=== PATIENT | male | born 1980 | race African-American/Black ===

== ENCOUNTER 2016-11-14 11:45 | Inpatient (IN) | payer OTHER ==
[2016-11-14 13:15] VITALS: BMI 20.7
--- NOTE | 2016-11-14 14:04 | HP ---
CIWA Score - CIWA Score Nausea/Vomitin-Mild Nausea/No Vomiting Muscle Tremors: 4-Moderate,w/Arms Extend Anxiety: 4-Mod. Anxious/Guarded Agitation: 1-Slight > Activity Paroxysmal Sweats: 1-Minimal Palms Moist Orientation: 0-Oriented Tacttile Disturbances: 1-Very Mild Itch/Numbness Auditory Disturbances: 1-Very Mild Visual Disturbances: 1-Very Mild Sensitivity Headache: 1-Very Mild CIWA-Ar Total Score: 15 Admission ROS BHS - HPI Chief Complaint: My brother suggested I be here, I'm drinking too much Allergies/Adverse Reactions: Allergies Allergy/AdvReac Type Severity Reaction Status Date / Time shrimp Allergy Intermediate Swelling Verified 11/14/16 13:58 History of Present Illness: 36 yo gentleman here for detox from alcohol - first time in detox. No seizures but does have black outs. Exam Limitations: Clinical Condition - Ebola screening Have you traveled outside of the country in the last 21 days: No Have you had contact with anyone from an Ebola affected area: No Have you been sick,other than usual withdrawal symptoms: No Do you have a fever: No - Review of Systems Constitutional: Loss of Appetite, Night Sweats, Changes in sleep, Weakness EENT: reports: Blurred Vision Respiratory: reports: No Symptoms reported Cardiac: reports: No Symptoms Reported GI: reports: Nausea, Poor Appetite, Indigestion : reports: Frequency Integumentary: reports: Dryness Neuro: reports: Headache Endocrine: reports: No Symptoms Reported Hematology: reports: No Symptoms Reported Psychiatric: reports: Mood/Affect Appropiate, Orientated x3, Agitated, Anxious Other Systems: Reviewed and Negative Patient History - Patient Medical History Hx Anemia: No Hx Asthma: No Hx Chronic Obstructive Pulmonary Disease (COPD): No Hx Cancer: No Hx Cardiac Disorders: No Hx Congestive Heart Failure: No Hx Hypertension: No Hx Hypercholesterolemia: No Hx Pacemaker: No HX Cerebrovascular Accident: No Hx Seizures: No Hx Dementia: No Hx Diabetes: No Hx Gastrointestinal Disorders: No Hx Liver Disease: No Hx Genitourinary Disorders: No Hx Sexually Transmitted Disorders: Yes (treated with PCN injections) Hx Renal Disease (ESRD): No Hx Thyroid Disease: No Hx Human Immunodeficiency Virus (HIV): No Hx Hepatitis C: No Hx Depression: No Hx Suicide Attempt: No Hx Bipolar Disorder: No Hx Schizophrenia: No - Patient Surgical History Past Surgical History: No - PPD History Previous Implant?: No PPD to be Administered?: Yes - Reproductive History Patient is a Female of Child Bearing Age (11 -55 yrs old): No (male) - Smoking Cessation Smoking history: Current every day smoker Have you smoked in the past 12 months: Yes Aproximately how many cigarettes per day: 8 Initiated information on smoking cessation: Yes 'Breaking Loose' booklet given: 11/14/16 (give on floor) - Substance & Tx. History Hx Alcohol Use: Yes Hx Substance Use: Yes Substance Use Type: Alcohol, Marijuana Hx Substance Use Treatment: Yes - Substances Abused Alcohol Route: Oral Frequency: Daily Amount used: three 40oz beers; 1 pint bourbon Age of first use: 17 Date of Last Use: 11/14/16 Marijuana/Hashish Route: Smoking Frequency: 3-6 times per week Amount used: 1 joint Age of first use: 17 Date of Last Use: 11/14/16 Family Disease History - Family Disease History Family Disease History: Heart Disease: Mother (alive, ), [place]: Father (, etoh), Other: Father, Mother, Brother (1 brother uses heroin), Sister (arthritis ) Admission Physical Exam S - Vital Signs Vital Signs: Vital Signs - 24 hr 11/14/16 13:12 Temperature 96.3 F L Pulse Rate 91 H Respiratory 18 Rate Blood Pressure 140/77 - Physical General Appearance: Yes: Nourished, Appropriately Dressed, Mild Distress, Anxious HEENTM: Yes: Hearing grossly Normal, Normocephalic, Normal Voice, Pharynx Normal Respiratory: Yes: Normal Breath Sounds, No Respiratory Distress Neck: Yes: No masses,lesions,Nodules, Supple Breast: Yes: Breast Exam Deferred Cardiology: Yes: Regular Rhythm, Regular Rate Abdominal: Yes: Soft Genitourinary: Yes: Within Normal Limits Back: Yes: Normal Inspection Musculoskeletal: Yes: full range of Motion, Gait Steady Extremities: Yes: Normal Inspection, Normal Range of Motion, Non-Tender Neurological: Yes: Fully Oriented, Alert, Normal Mood/Affect, Normal Response Integumentary: Yes: Normal Color, Warm Lymphatic: Yes: Within Normal Limits - Diagnostic (1) Alcohol dependence with uncomplicated withdrawal Current Visit: Yes Status: Chronic (2) Cannabis dependence Current Visit: Yes Status: Chronic (3) Nicotine dependence Current Visit: Yes Status: Chronic Qualifiers: Nicotine product type: cigarettes Substance use status: uncomplicated Qualified Code(s): F17.210 - Nicotine dependence, cigarettes, uncomplicated (4) Syphilis contact, treated Current Visit: Yes Status: Chronic Comment: hx PCN injections years ago Cleared for Admission [facility] - Detox or Rehab [facility] Level of Care: Medically Managed Detox Regimen/Protocol: Librium BHS Breath Alcohol Content Breath Alcohol Content: 0.148 Urine Drug Screen - Results Drug Screen Negative: No Urine Drug Screen Results: THC-Marijuana
[2016-11-14] MEDS ORDERED: MAG HYDROX/AL HYDROX/SIMETH 30 ML UNIT-DOSE CUP PO PRN (14:08)
[2016-11-14] MEDS ORDERED: chlordiazePOXIDE HCL 25 MG CAPSULE PO ONE (14:08)
[2016-11-14] MEDS ORDERED: MAGNESIUM HYDROX 2400MG/30ML ORAL SUSPENSION 30 ML CUP PO PRN (14:08)
[2016-11-14] MEDS ORDERED: MAGNESIUM CITRATE 300 ML BOTTLE PO PRN (14:08)
[2016-11-14] MEDS ORDERED: IBUPROFEN 400 MG TABLET (FP) PO PRN (14:08)
[2016-11-14] MEDS ORDERED: chlordiazePOXIDE HCL 25 MG CAPSULE PO PRN (14:08)
[2016-11-14] MEDS ORDERED: guaiFENesin/D-METHORPHAN HB 10 ML UNIT-DOSE CUPS PO PRN (14:08)
[2016-11-14] MEDS ORDERED: P-EPHED 60MG/TRIPROLIDI 2.5MG TABLET PO PRN (14:08)
[2016-11-14] MEDS ORDERED: ACETAMINOPHEN 325 MG TABLET (FP) PO PRN (14:08)
[2016-11-14] MEDS ORDERED: LOPERAMIDE HCL 2 MG CAPSULE PO PRN (14:08)
[2016-11-14] MEDS: NICOTINE 14 MG/24 HOURS TOPICAL PATCH TD SCH (15:58)
[2016-11-14] MEDS: chlordiazePOXIDE HCL 25 MG CAPSULE PO SCH ×2 (18:34→22:02)
[2016-11-14] MEDS: diphenhydrAMINE HCL 50 MG CAPSULE PO PRN (22:01)
[2016-11-14] MEDS: THIAMINE HCL 100 MG TABLET (FP) PO SCH (22:01)
[2016-11-15] MEDS: chlordiazePOXIDE HCL 25 MG CAPSULE PO SCH ×4 (05:57→22:01)
[2016-11-15 09:54] LABS: ALBUMIN 3.9 g/dl (3.4-5.0); ALK PHOS 78 U/L (45-117); ANION GAP 9 (8-16); BILIRUBIN,TOTAL 0.8 mg/dL (0.2-1.0); CALCIUM 8.9 mg/dL (8.5-10.1); CO2 29 mmol/L (21-32); COCKROFT - GAULT 112.45; CREATININE 0.8 mg/dL (0.7-1.3); GLUCOSE,RANDOM 80 mg/dL (74-106); SGOT/AST 79 U/L (15-37); SGPT/ALT 36 U/L (12-78); TOT PROT 7.5 g/dl (6.4-8.2)
[2016-11-15 10:01] LABS: MCH 31.5 pg (25.7-33.7); MCHC 33.3 g/dl (32.0-35.9); MEAN CELL VOLUME 94.7 fl (80-96); MEAN PLT VOLUME 7.1 fl (7.5-11.1); PLATELET COUNT 275 K/MM3 (134-434); RDW 13.6 % (11.9-15.9); WHITE BLOOD COUNT 4.4 K/mm3 (4.0-10.0)
[2016-11-15] MEDS: PRENATAL VITAMINS W/ FOLIC ACID TABLET (FP) PO SCH (10:06)
[2016-11-15] MEDS: NICOTINE 14 MG/24 HOURS TOPICAL PATCH TD SCH (10:06)
[2016-11-15 10:20] LABS: URINE APPEARANCE CLEAR; URINE BILIRUBIN NEGATIVE (NEGATIVE); URINE BLOOD NEGATIVE (NEGATIVE); URINE COLOR COLORLESS; URINE GLUCOSE (UA) NEGATIVE (NEGATIVE); URINE KETONE NEGATIVE (NEGATIVE); URINE LEUK ESTERASE NEGATIVE (NEGATIVE); URINE NITRITE NEGATIVE (NEGATIVE); URINE PROTEIN NEGATIVE (NEGATIVE); URINE UROBILINOGEN NEGATIVE E.U./dl (0.2-1.0)
--- NOTE | 2016-11-15 11:02 | PN ---
S CIWA - CIWA Score Nausea/Vomitin-No Nausea/No Vomiting Muscle Tremors: 3 Anxiety: 4-Mod. Anxious/Guarded Agitation: 4-Moderately Restless Paroxysmal Sweats: 3 Orientation: 0-Oriented Tacttile Disturbances: 0-None Auditory Disturbances: 0-None Visual Disturbances: 0-None Headache: 0-None Present CIWA-Ar Total Score: 14 BHS Progress Note (SOAP) Subjective: Anxiety,tremors,sweating,interrupted sleep,restless. Objective: 11/15/16 11:01 Vital Signs - 8 hr 11/15/16 11/15/16 11/15/16 03:43 06:00 09:33 Temperature 97.2 F L 97.2 F L Pulse Rate 61 85 Respiratory 18 18 18 Rate Blood Pressure 130/88 140/99 Laboratory Results - last 24 hr 11/14/16 11/15/16 11/15/16 08:40 08:00 08:00 WBC 4.4 RBC 4.31 Hgb 13.6 Hct 40.8 MCV 94.7 MCHC 33.3 RDW 13.6 Plt Count 275 MPV 7.1 L Sodium 137 Potassium 3.9 Chloride 99 Carbon Dioxide 29 Anion Gap 9 BUN 10 Creatinine 0.8 Creat Clearance w eGFR > 60 Random Glucose 80 Calcium 8.9 Total Bilirubin 0.8 AST 79 H ALT 36 Alkaline Phosphatase 78 Total Protein 7.5 Albumin 3.9 Urine Color Colorless Urine Appearance Clear Urine pH 6.0 Urine Protein Negative Urine Glucose (UA) Negative Urine Ketones Negative Urine Blood Negative Urine Nitrite Negative Urine Bilirubin Negative Urine Urobilinogen Negative Ur Leukocyte Esterase Negative labs noted Assessment: 11/15/16 11:02 Withdrawal sx. Plan: Continue detox
[2016-11-15] MEDS: hydrOXYzine PAMOATE 50 MG CAPSULE (FP) PO PRN (17:29)
[2016-11-15] MEDS: THIAMINE HCL 100 MG TABLET (FP) PO SCH (22:01)
[2016-11-15] MEDS: diphenhydrAMINE HCL 50 MG CAPSULE PO PRN (22:02)
[2016-11-16] MEDS: chlordiazePOXIDE HCL 25 MG CAPSULE PO SCH ×2 (04:52→10:05)
--- NOTE | 2016-11-16 08:56 | CONSULT ---
[facility] Psychiatric Consult - Data Date of interview: 11/16/16 Admission source: [facility] Identifying data: This is 36 years old male with no psychiatric hospitalization history intoxicated with: Alcohol, Cannabis, Nicotine Substance Abuse History: - Smoking Cessation. Smoking history: Current every day smoker. Have you smoked in the past 12 months: Yes. Aproximately how many cigarettes per day: 8. Initiated information on smoking cessation: Yes. ' Breaking Loose' booklet given: 11/14/16 (give on floor). - Substance & Tx. History. Hx Alcohol Use: Yes. Hx Substance Use: Yes. Substance Use Type: Alcohol, Marijuana. Hx Substance Use Treatment: Yes. - Substances Abused. Alcohol. Route: Oral. Frequency: Daily. Amount used: three 40oz beers; 1 pint bourbon. Age of first use: 17. Date of Last Use: 11/14/16. Marijuana/ Hashish. Route: Smoking. Frequency: 3-6 times per week. Amount used: 1 joint. Age of first use: 17. Date of Last Use: 11/14/16 Medical History: Hisotry of Syphilis contact Psychiatric History: Patient reports history of Bipolar disorder, reports no history of psychiatric hospitalizationsd, reports no medications taking prior to admission Physical/Sexual Abuse/Trauma History: Denies Additional Comment: Observation. Detox Unit Care Protocol Mental Status Exam - Mental Status Exam Alert and Oriented to: Person Cognitive Function: Fair Patient Appearance: Unkempt Mood: Sad Affect: Flat Patient Behavior: Sedated Speech Pattern: Delayed Voice Loudness: Mildly Soft/Quiet Thought Process: Circumstantial Thought Disorder: Being Controlled Hallucinations: Denies Suicidal Ideation: Denies Homicidal Ideation: Denies Insight/Judgement: Fair Sleep: Difficulty falling asleep Appetite: Fair Muscle strength/Tone: Mild Hypotonicity Gait/Station: Shuffling Additional Comments: Observation. Detox Unit Care Protocol Psychiatric Findings - Problem List ([place] 1, 2,3) (1) Alcohol dependence with uncomplicated withdrawal Current Visit: Yes Status: Chronic (2) Cannabis dependence Current Visit: Yes Status: Chronic (3) Nicotine dependence Current Visit: Yes Status: Chronic Qualifiers: Nicotine product type: cigarettes Substance use status: uncomplicated Qualified Code(s): F17.210 - Nicotine dependence, cigarettes, uncomplicated (4) Syphilis contact, treated Current Visit: Yes Status: Chronic Comment: hx PCN injections years ago (5) Bipolar disorder Current Visit: Yes Status: Suspected - Initial Treatment Plan Initial Treatment Plan: Observation. Detox Unit Care Protocol
--- NOTE | 2016-11-16 09:10 | EKG ---
Test Reason : Blood Pressure : / mmHG Vent. Rate : 087 BPM Atrial Rate : 087 BPM P-R Int : 136 ms QRS Dur : 094 ms QT Int : 362 ms P-R-T Axes : 047 061 035 degrees QTc Int : 435 ms NORMAL SINUS RHYTHM NORMAL ECG NO PREVIOUS ECGS AVAILABLE Confirmed by MIGUEL BRYANT MD ([id number]) on 11/16/2016 9:10:37 AM Referred By: Confirmed By:MIGUEL BRYANT MD
[2016-11-16] MEDS: PRENATAL VITAMINS W/ FOLIC ACID TABLET (FP) PO SCH (10:05)
[2016-11-16] MEDS: NICOTINE 14 MG/24 HOURS TOPICAL PATCH TD SCH (10:06)
[2016-11-16] MEDS: NICOTINE POLACRILEX 2 MG GUM BUC PRN (10:08)
--- NOTE | 2016-11-16 11:09 | PN ---
S CIWA - CIWA Score Nausea/Vomitin Muscle Tremors: 2 Anxiety: 2 Agitation: 2 Paroxysmal Sweats: 3 Orientation: 0-Oriented Tacttile Disturbances: 1-Very Mild Itch/Numbness Auditory Disturbances: 0-None Visual Disturbances: 0-None Headache: 0-None Present CIWA-Ar Total Score: 12 S Progress Note (SOAP) Subjective: interupted sleep, sweats Objective: 11/16/16 11:07 Vital Signs Temperature 96.3 F L 11/16/16 09:51 Pulse Rate 76 11/16/16 09:51 Respiratory Rate 16 11/16/16 09:51 Blood Pressure 125/84 11/16/16 09:51 O2 Sat by Pulse Oximetry (%) Laboratory Tests 11/14/16 11/15/16 11/15/16 08:40 08:00 08:00 WBC 4.4 RBC 4.31 Hgb 13.6 Hct 40.8 MCV 94.7 MCHC 33.3 RDW 13.6 Plt Count 275 MPV 7.1 L Sodium 137 Potassium 3.9 Chloride 99 Carbon Dioxide 29 Anion Gap 9 BUN 10 Creatinine 0.8 Creat Clearance w eGFR > 60 Random Glucose 80 Calcium 8.9 Total Bilirubin 0.8 AST 79 H ALT 36 Alkaline Phosphatase 78 Total Protein 7.5 Albumin 3.9 Urine Color Colorless Urine Appearance Clear Urine pH 6.0 Ur Specific [place] <= 1.005 Urine Protein Negative Urine Glucose (UA) Negative Urine Ketones Negative Urine Blood Negative Urine Nitrite Negative Urine Bilirubin Negative Urine Urobilinogen Negative Ur Leukocyte Esterase Negative RPR Titer 11/15/16 08:00 WBC RBC Hgb Hct MCV MCHC RDW Plt Count MPV Sodium Potassium Chloride Carbon Dioxide Anion Gap BUN Creatinine Creat Clearance w eGFR Random Glucose Calcium Total Bilirubin AST ALT Alkaline Phosphatase Total Protein Albumin Urine Color Urine Appearance Urine pH Ur Specific [place] Urine Protein Urine Glucose (UA) Urine Ketones Urine Blood Urine Nitrite Urine Bilirubin Urine Urobilinogen Ur Leukocyte Esterase RPR Titer Nonreactive pt aox3 in nad ambulating Assessment: 11/16/16 11:08 11/16/16 11:08 withdrawal sx;s Plan: cont. detox increase fluids
[2016-11-16] MEDS: chlordiazePOXIDE 5 MG CAPSULE PO SCH ×2 (17:25→22:19)
[2016-11-16] MEDS: diphenhydrAMINE HCL 50 MG CAPSULE PO PRN (22:19)
[2016-11-16] MEDS: THIAMINE HCL 100 MG TABLET (FP) PO SCH (22:19)
[2016-11-17] MEDS: chlordiazePOXIDE 5 MG CAPSULE PO SCH ×2 (04:54→10:14)
[2016-11-17] MEDS: NICOTINE 14 MG/24 HOURS TOPICAL PATCH TD SCH (10:14)
[2016-11-17] MEDS: PRENATAL VITAMINS W/ FOLIC ACID TABLET (FP) PO SCH (10:14)
--- NOTE | 2016-11-17 10:22 | PN ---
BHS Progress Note (SOAP) Subjective: interrupted sleep irritable Objective: 11/17/16 10:23 Vital Signs Temperature 97.6 F 11/17/16 05:57 Pulse Rate 67 11/17/16 05:57 Respiratory Rate 18 11/17/16 05:57 Blood Pressure 102/62 11/17/16 05:57 O2 Sat by Pulse Oximetry (%) awake/alert ambulating no acute distress Assessment: 11/17/16 10:23 withdrawal sx Plan: continue detox encourage benadеленаl for tonight d/c in am
[2016-11-17] MEDS: NICOTINE POLACRILEX 2 MG GUM BUC PRN (12:34)
[2016-11-17] MEDS: chlordiazePOXIDE HCL 10 MG CAPSULE PO SCH ×2 (17:26→22:03)
[2016-11-17] MEDS: diphenhydrAMINE HCL 50 MG CAPSULE PO PRN (22:04)
[2016-11-17] MEDS: THIAMINE HCL 100 MG TABLET (FP) PO SCH (22:04)
[2016-11-17] MEDS: hydrOXYzine PAMOATE 50 MG CAPSULE (FP) PO PRN (23:40)
[2016-11-18] MEDS: diphenhydrAMINE HCL 50 MG CAPSULE PO PRN (01:34)
[2016-11-18] MEDS: chlordiazePOXIDE HCL 10 MG CAPSULE PO SCH (05:48)
[2016-11-18 06:31] VITALS: BP 108/68; PULSE 61; TEMP 96.4
--- NOTE | 2016-11-18 08:32 | DS ---
[facility] Detox Discharge Summary Admission Date: 11/14/16 Discharge Date: 11/18/16 - History Present History: Alcohol Dependence, Cannabis Dependence - Physical Exam Results Vital Signs: Vital Signs Temperature 96.4 F L 11/18/16 06:00 Pulse Rate 61 11/18/16 06:00 Respiratory Rate 16 11/18/16 06:00 Blood Pressure 108/68 11/18/16 06:00 O2 Sat by Pulse Oximetry (%) - Treatment Hospital Course: Detox Protocol Followed, Detoxed Safely, Responded well, Discharged Condition Good - Medication Discharge Medications: Ambulatory Orders NK [No Known Home Medication] 11/14/16 - AMA Did Patient Leave Against Medical Advice: No
== END 2016-11-18 09:00 | disposition home or self-care (01) | DRG 775 ==
LOC: YASAS 11:45 → Y6N 14:10
PROVIDERS: ADMIT Internal Medicine; ATTEND Internal Medicine Addiction Medicine
PROC: HZ2ZZZZ Detoxification Services for Substance Abuse Treatment (ICD-10-PCS; principal; 2016-11-14)
DX: F10.230 Alcohol dependence with withdrawal, uncomplicated (principal); F12.20 Cannabis dependence, uncomplicated; F17.210 Nicotine dependence, cigarettes, uncomplicated; F31.9 Bipolar disorder, unspecified; Z87.438 Personal history of other diseases of male genital organs
CPT/HCPCS: 36415; 80053; 81003; 85027; 86593; 93005; 93010

== ENCOUNTER 2018-09-19 22:57 | Emergency (ER) | payer OTHER ==
[2018-09-19 23:06] VITALS: BMI 24.3
--- NOTE | 2018-09-19 23:44 | PDOC ---
Attending Attestation - Resident Resident Name: Alfonso Stuart - ED Attending Attestation I have performed the following: I have examined & evaluated the patient, The case was reviewed & discussed with the resident, I agree w/resident's findings & plan - HPI HPI: 09/20/18 02:34 38-year-old male sent over from rehabilitation, staff stated he was laughing and would not answer questions. They found his alcohol to be above 400. Patient arrives with no complaints except that he does not want rehabilitation and his family dropped him off there. There are no outward signs of trauma. - Physicial Exam PE: 09/20/18 02:34 GENERAL: Awake, in no acute distress HEAD: No signs of trauma EYES: ENT:clear without exudates. Moist mucosa NECK: Normal ROM, LUNGS:. Normal work of breathing. HEART: Regular rate and rhythm, ABDOMEN: Soft, nondistended CHEST WALL: BACK: No midline tenderness. EXTREMITIES:. No erythema, or tenderness NEUROLOGICAL: Alert, SKIN: Warm, Dry - Medical Decision Making 09/20/18 02:58 38-year-old male with elevated blood alcohol level Labs otherwise unremarkable Patient is ambulating with steady gait alert and oriented 4 with no additional complaints Plan for further observation in the emergency department with discharge pending daylight hours and clinical sobriety
--- NOTE | 2018-09-19 23:54 | PDOC ---
History of Present Illness - General Chief Complaint: Alcohol intoxication Stated Complaint: INTOXICATION/ K2 Time Seen by Provider: 09/19/18 23:28 History Source: Patient - History of Present Illness Initial Comments: 09/19/18 23:56 38 yo M no significant medical history sent from [facility] for elevated alcohol level. Patient's family dropped him off at [facility] today. Patient was drunk and incoherent at [facility] and therefore he's sent to [facility] ED for medical management. Patient is currently intoxicated and unable to provide more reliable history. 09/20/18 00:33 Will order CMP, CBC and alcohol level, urine tox screen will reassess the patient whether he's willing to return to [facility] after sobering up. 09/20/18 04:51 Patient does not want to go to [facility] Will discharge the patient back home Past History - Past Medical History Allergies/Adverse Reactions: Allergies Allergy/AdvReac Type Severity Reaction Status Date / Time shrimp Allergy Intermediate Swelling Verified 09/19/18 23:07 Home Medications: Ambulatory Orders NK [No Known Home Medication] 11/14/16 Anemia: No Asthma: No Cancer: No Cardiac Disorders: No CVA: No COPD: No CHF: No Dementia: No Diabetes: No GI Disorders: No Disorders: No HTN: No Hypercholesterolemia: No Kidney Stones: No Liver Disease: No Seizures: No Thyroid Disease: No - Surgical History Abdominal Surgery: No Appendectomy: No Cardiac Surgery: No Cholecystectomy: No Lung Surgery: No Neurologic Surgery: No Orthopedic Surgery: No - Reproductive History Testicular Surgery: No - Suicide/Smoking/Psychosocial Hx Smoking History: Never smoked Have you smoked in the past 12 months: No Number of Cigarettes Smoked Daily: 8 Information on smoking cessation initiated: No 'Breaking Loose' booklet given: 09/19/18 Hx Alcohol Use: Yes Drug/Substance Use Hx: Yes (k2) Substance Use Type: Alcohol, Marijuana Hx Substance Use Treatment: Yes Review of Systems - Review of Systems Able to Perform ROS?: No (intoxicated) *Physical Exam - Vital Signs Last Vital Signs Temp Pulse Resp BP Pulse Ox 98.2 F 82 16 124/96 100 09/19/18 23:05 09/19/18 23:05 09/19/18 23:05 09/19/18 23:05 09/19/18 23:05 - Physical Exam General Appearance: Yes: Alcohol on Breath, Intoxicated Respiratory/Chest: positive: Lungs Clear, Normal Breath Sounds Cardiovascular: positive: Regular Rhythm, S1, S2, Tachycardia Gastrointestinal/Abdominal: positive: Normal Bowel Sounds. negative: Tenderness Neurologic: positive: Responsive, Confused, Disoriented Moderate Sedation - Procedure Monitoring Vital Signs: Procedure Monitoring Vital Signs Temperature 98.2 F 09/19/18 23:05 Pulse Rate 82 09/19/18 23:05 Respiratory Rate 16 09/19/18 23:05 Blood Pressure 124/96 09/19/18 23:05 O2 Sat by Pulse Oximetry (%) 100 09/19/18 23:05 ED Treatment Course - LABORATORY CBC & Chemistry Diagram: 09/19/18 23:50 09/19/18 23:50 *DC/Admit/Observation/Transfer Diagnosis at time of Disposition: Intoxication - Discharge Dispostion Disposition: HOME Condition at time of disposition: Stable - Referrals - Patient Instructions Additional Instructions: You were seen in the ER at [facility] because of alcohol intoxication. You were treated with supportive care and now stable to be discharged home since you declined alcohol detox at [facility]. Please refrain from further alcohol abuse and seek professional help or alcohol detox. Return to ER if you experience fever, chills, severe tremors, excessive sweating , seizure or hallucinations. - Post Discharge Activity
[2018-09-20 00:22] LABS: BASO % 0.6 % (0-2.0); HEMATOCRIT 38.5 % (35.4-49); HEMOGLOBIN 13.3 GM/dL (11.7-16.9); LYMPH % 55.8 % (8-40); MCH 33.7 pg (25.7-33.7); MCHC 34.6 g/dl (32.0-35.9); MEAN CELL VOLUME 97.2 fl (80-96); MEAN PLT VOLUME 7.1 fl (7.5-11.1); MONO % 8.1 % (3.8-10.2); NEUT % 34.5 % (42.8-82.8); PLATELET COUNT 190 K/MM3 (134-434); RBC 3.96 M/mm3 (4.00-5.60); RDW 13.3 % (11.9-15.9); WHITE BLOOD COUNT 5.1 K/mm3 (4.0-10.0)
[2018-09-20 00:52] LABS: ALBUMIN 4.1 g/dl (3.4-5.0); ALK PHOS 109 U/L (45-117); ANION GAP 9 MMOL/L (8-16); BILIRUBIN,TOTAL 0.5 mg/dL (0.2-1); BLOOD UREA NITROGEN 12 mg/dL (7-18); CALCIUM 8.5 mg/dL (8.5-10.1); CHLORIDE 105 mmol/L (98-107); CO2 24 mmol/L (21-32); CREATININE 0.7 mg/dL (0.55-1.3); GLUCOSE,RANDOM 74 mg/dL (74-106); POTASSIUM 3.9 mmol/L (3.5-5.1); SGOT/AST 128 U/L (15-37); SGPT/ALT 56 U/L (13-61); SODIUM 138 mmol/L (136-145); TOT PROT 8.4 g/dl (6.4-8.2)
[2018-09-20] MEDS ORDERED: ACETAMINOPHEN 325 MG TABLET (FP) PO ONE (02:57)
[2018-09-20] MEDS ORDERED: ACETAMINOPHEN 325 MG TABLET (FP) ONE (02:57)
[2018-09-20 04:56] LABS: URINE AMPHETAMINES NEGATIVE ng/ml (CUTOFF=500)
[2018-09-20 04:57] LABS: METHADONE, UR NEGATIVE ng/ml (CUTOFF=300); OPIATES, URI NEGATIVE ng/ml (CUTOFF=300); PHENCYCLIDINE,URINE NEGATIVE ng/ml (CUTOFF=25)
[2018-09-20 05:20] LABS: COCAINE, UR NEGATIVE ng/ml (CUTOFF=300); URINE BARBITURATES NEGATIVE ng/ml (CUTOFF=200); URINE BENZODIAZEPINES NEGATIVE ng/ml (CUTOFF=200)
[2018-09-20 06:47] VITALS: BP 110/78; PULSE 89; TEMP 98.5
== END 2018-09-20 06:45 | disposition home or self-care (01) ==
LOC: JER 22:57
DX: F10.120 Alcohol abuse with intoxication, uncomplicated (principal); Y90.8 Blood alcohol level of 240 mg/100 ml or more
CPT/HCPCS: 36415; 80053; 80307; 85025; 99281-25

== ENCOUNTER 2018-09-20 09:27 | Inpatient (IN) | payer OTHER ==
[2018-09-20 09:53] VITALS: BMI 19.2
[2018-09-20] MEDS ORDERED: FLU VACCINE QUAD 60 MCG/0.5 ML (MDV 18-19) IM ONE (11:28)
--- NOTE | 2018-09-20 11:56 | HP ---
CIWA Score Nausea/Vomitin Muscle Tremors: 2 Anxiety: 2 Agitation: 2 Paroxysmal Sweats: 1-Minimal Palms Moist Orientation: 0-Oriented Tacttile Disturbances: 1-Very Mild Itch/Numbness Auditory Disturbances: 1-Very Mild Visual Disturbances: 0-None Headache: 2-Mild CIWA-Ar Total Score: 13 - Admission Criteria [facility] Guidelines: Admission for Medically Managed Detox: Requires at least one of the followin. CIWA greater than 12 2. Seizures within the past 24 hours 3. Delirium tremens within the past 24 hours 4. Hallucinations within the past 24 hours 5. Acute intervention needed for co occurring medical disorder 6. Acute intervention needed for co occurring psychiatric disorder 7. Severe withdrawal that cannot be handled at a lower level of care (continued vomiting, continued diarrhea, abnormal vital signs) requiring intravenous medication and/or fluids 8. Patient presents the following: CIWA greater than 12 Admission Criteria Met: Admission criteria met Admission ROS [facility] - HPI Chief Complaint: i need help to stop drinking alcohol,also marijuana abused Allergies/Adverse Reactions: Allergies Allergy/AdvReac Type Severity Reaction Status Date / Time shrimp Allergy Intermediate Swelling Verified 09/19/18 23:07 History of Present Illness: this 38 years old male with alcohol dependence,marijuana abused,seeking detox, withdrawal symptom,last detox [facility] 11/14/16 to 11/18/16 seizure last 09/13/18 syncope nicotine dependence 10 cigarette, no significant period of sobriety previously treated for syphilis bipolar disorder Exam Limitations: No Limitations - Ebola screening Have you traveled outside of the country in the last 21 days: No Have you had contact with anyone from an Ebola affected area: No Have you been sick,other than usual withdrawal symptoms: No Do you have a fever: No - Review of Systems Constitutional: Loss of Appetite, Malaise, Night Sweats, Changes in sleep, Weakness, Unintentional Wgt. Loss EENT: reports: Tearing, Nose Congestion Respiratory: reports: No Symptoms reported Cardiac: reports: Palpitations GI: reports: Nausea, Poor Appetite, Vomiting, Abdominal cramping : reports: No Symptoms Reported Musculoskeletal: reports: Back Pain, Muscle Pain Integumentary: reports: Dryness Neuro: reports: Headache, Tremors Endocrine: reports: No Symptoms Reported Hematology: reports: No Symptoms Reported Psychiatric: reports: No Sypmtoms Reported, Judgement Intact, Mood/Affect Appropiate, Orientated x3, other Other Systems: Reviewed and Negative Patient History - Patient Medical History Hx Anemia: No Hx Asthma: No Hx Chronic Obstructive Pulmonary Disease (COPD): No Hx Cancer: No Hx Cardiac Disorders: No Hx Congestive Heart Failure: No Hx Hypertension: No Hx Hypercholesterolemia: No Hx Pacemaker: No HX Cerebrovascular Accident: No Hx Seizures: Yes (etoh related last 09/13/18) Hx Dementia: No Hx Diabetes: No Hx Gastrointestinal Disorders: No Hx Liver Disease: No Hx Genitourinary Disorders: No Hx Sexually Transmitted Disorders: No Hx Renal Disease (ESRD): No Hx Thyroid Disease: No Hx Human Immunodeficiency Virus (HIV): No (last 2018 negative) Hx Hepatitis C: No Hx Depression: No Hx Suicide Attempt: No Hx Bipolar Disorder: No Hx Schizophrenia: No Other Medical History: no suicidal,no homicidal - Patient Surgical History Past Surgical History: No Hx Neurologic Surgery: No Hx Cataract Extraction: No Hx Cardiac Surgery: No Hx Lung Surgery: No Hx Breast Surgery: No Hx Breast Biopsy: No Hx Abdominal Surgery: No Hx Appendectomy: No Hx Cholecystectomy: No Hx Genitourinary Surgery: No Hx Section: No Hx Orthopedic Surgery: No Anesthesia Reaction: No - PPD History Previous Implant?: Yes Documented Results: Negative w/o proof Implanted On Prior [facility] Admission?: Yes Date: 11/16/16 Results: 0 mm PPD to be Administered?: Yes - Reproductive History Patient : No - Smoking Cessation Smoking history: Current every day smoker Have you smoked in the past 12 months: Yes Aproximately how many cigarettes per day: 10 Hx Chewing Tobacco Use: No Initiated information on smoking cessation: Yes 'Breaking Loose' booklet given: 09/20/18 - Substance & Tx. History Hx Alcohol Use: Yes Hx Substance Use: Yes Substance Use Type: Alcohol, Marijuana Hx Substance Use Treatment: Yes ([facility] 11/14/16 to 11/18/16) - Substances Abused Alcohol Route: Oral Frequency: Daily Amount used: 4 pt. liquor, 5 beers ( 24 oz) Age of first use: 16 Date of Last Use: 09/20/18 Marijuana/Hashish Route: Smoking Frequency: 1-2 times per week Amount used: 10$ Age of first use: 18 Date of Last Use: 09/18/18 Family Disease History - Family Disease History Family Disease History: Heart Disease: Mother (alive, ), [place]: Father (, etoh), Other: Father, Mother, Brother (1 brother uses heroin), Sister (arthritis ) Admission Physical Exam [facility] - Vital Signs Vital Signs: Vital Signs - 24 hr 09/20/18 09:50 Temperature 98.8 F Pulse Rate 107 H Respiratory 17 Rate Blood Pressure 140/104 H - Physical General Appearance: Yes: Moderate Distress, Tremorous, Irritable, Sweating, Anxious HEENTM: Yes: Normal ENT Inspection, BRIAN, Pharynx Normal Respiratory: Yes: Within Normal Limits, Lungs Clear, Normal Breath Sounds Neck: Yes: Supple, Trachea in good position Breast: Yes: Within Normal Limits Cardiology: Yes: Tachycardia Abdominal: Yes: Within Normal Limits, Normal Bowel Sounds, Soft Genitourinary: Yes: Within Normal Limits Back: Yes: Muscle Spasm Musculoskeletal: Yes: full range of Motion, Back pain, Muscle Pain Extremities: Yes: Tremors Neurological: Yes: mold stacker II-XII NML intact, Fully Oriented, Alert, Motor Strength 5/5 Integumentary: Yes: Dry Lymphatic: Yes: Within Normal Limits - Diagnostic (1) Alcohol dependence with uncomplicated withdrawal Current Visit: No Status: Chronic (2) Cannabis dependence Current Visit: No Status: Chronic (3) Nicotine dependence Current Visit: No Status: Chronic Qualifiers: Nicotine product type: cigarettes Substance use status: uncomplicated Qualified Code(s): F17.210 - Nicotine dependence, cigarettes, uncomplicated (4) Syphilis contact, treated Current Visit: No Status: Chronic Comment: hx PCN injections years ago (5) Bipolar disorder Current Visit: No Status: Suspected (6) Alcohol dependence with intoxication Current Visit: Yes Status: Acute Cleared for Admission [facility] - Detox or Rehab [facility] Level of Care: Medically Managed Detox Regimen/Protocol: Librium [facility] Breath Alcohol Content Breath Alcohol Content: 0.153 Urine Drug Screen - Results Drug Screen Negative: No Urine Drug Screen Results: THC-Marijuana Inpatient Rehab Admission - Rehab Decision to Admit Inpatient rehab admission?: No
[2018-09-20] MEDS ORDERED: ACETAMINOPHEN 325 MG TABLET (FP) PO PRN ×2 (12:14)
[2018-09-20] MEDS ORDERED: METHOCARBAMOL 500 MG TABLET PO PRN (12:14)
[2018-09-20] MEDS ORDERED: chlordiazePOXIDE HCL 25 MG CAPSULE PO PRN (12:14)
[2018-09-20] MEDS ORDERED: MAGNESIUM HYDROX 2400MG/30ML ORAL SUSPENSION 30 ML CUP PO PRN (12:14)
[2018-09-20] MEDS ORDERED: MAGNESIUM CITRATE 300 ML BOTTLE PO PRN (12:14)
[2018-09-20] MEDS ORDERED: BISMUTH SUBSALICYLATE 262 MG/15 ML BTL PO PRN (12:14)
[2018-09-20] MEDS ORDERED: MENTHOL/PHENOL 1 EACH UD MM PRN (12:14)
[2018-09-20] MEDS ORDERED: MAG HYDROX/AL HYDROX/SIMETH 30 ML UNIT-DOSE CUP PO PRN (12:14)
[2018-09-20] MEDS: NICOTINE 21 MG/24 HOURS TOPICAL PATCH TD SCH (13:51)
[2018-09-20] MEDS: chlordiazePOXIDE HCL 25 MG CAPSULE PO SCH ×2 (17:00→22:09)
[2018-09-20] MEDS: THIAMINE HCL 100 MG TABLET (FP) PO SCH (22:09)
[2018-09-21] MEDS: chlordiazePOXIDE HCL 25 MG CAPSULE PO SCH ×4 (06:30→22:06)
[2018-09-21] MEDS: PRENATAL VITAMINS W/ FOLIC ACID TABLET (FP) PO SCH (10:09)
[2018-09-21] MEDS: NICOTINE 21 MG/24 HOURS TOPICAL PATCH TD SCH (10:09)
[2018-09-21 10:52] LABS: HEMATOCRIT 37.7 % (35.4-49); HEMOGLOBIN 12.9 GM/dL (11.7-16.9); MCH 33.7 pg (25.7-33.7); MCHC 34.2 g/dl (32.0-35.9); MEAN CELL VOLUME 98.4 fl (80-96); MEAN PLT VOLUME 8.4 fl (7.5-11.1); PLATELET COUNT 191 K/MM3 (134-434); RBC 3.83 M/mm3 (4.00-5.60); RDW 13.5 % (11.9-15.9); WHITE BLOOD COUNT 6.3 K/mm3 (4.0-10.0)
[2018-09-21 11:16] LABS: ALBUMIN 4.6 g/dl (3.4-5.0); ALK PHOS 116 U/L (45-117); ANION GAP 14 MMOL/L (8-16); BILIRUBIN,TOTAL 0.7 mg/dL (0.2-1); BLOOD UREA NITROGEN 10 mg/dL (7-18); CALCIUM 8.5 mg/dL (8.5-10.1); CHLORIDE 98 mmol/L (98-107); CO2 22 mmol/L (21-32); CREATININE 0.8 mg/dL (0.55-1.3); GLUCOSE,RANDOM 88 mg/dL (74-106); POTASSIUM 3.7 mmol/L (3.5-5.1); SGOT/AST 106 U/L (15-37); SGPT/ALT 50 U/L (13-61); SODIUM 134 mmol/L (136-145); TOT PROT 8.9 g/dl (6.4-8.2)
[2018-09-21] MEDS ORDERED: PNEUMOC 13-VAL CONJ-DIP CRM/PF 0.5 ML DISP.SYRIN IM ONE (11:31)
[2018-09-21] MEDS: hydrOXYzine PAMOATE 25 MG CAPSULE (FP) PO PRN (11:34)
--- NOTE | 2018-09-21 11:37 | PN ---
S CIWA - CIWA Score Nausea/Vomitin-No Nausea/No Vomiting Muscle Tremors: 3 Anxiety: 3 Agitation: 4-Moderately Restless Paroxysmal Sweats: 3 Orientation: 0-Oriented Tacttile Disturbances: 0-None Auditory Disturbances: 0-None Visual Disturbances: 0-None Headache: 0-None Present CIWA-Ar Total Score: 13 BHS Progress Note (SOAP) Subjective: sweats shakes restless interrupted sleep anxiety Objective: 09/21/18 11:36 Vital Signs Temperature 97.8 F 09/21/18 09:33 Pulse Rate 64 09/21/18 09:33 Respiratory Rate 18 09/21/18 09:33 Blood Pressure 138/72 09/21/18 09:33 O2 Sat by Pulse Oximetry (%) Laboratory Tests 09/20/18 09/21/18 09/21/18 13:00 06:00 06:00 WBC 6.3 RBC 3.83 L Hgb 12.9 Hct 37.7 MCV 98.4 H MCH 33.7 MCHC 34.2 RDW 13.5 Plt Count 191 MPV 8.4 D Sodium 134 L Potassium 3.7 Chloride 98 Carbon Dioxide 22 Anion Gap 14 BUN 10 Creatinine 0.8 Creat Clearance w eGFR > 60 Random Glucose 88 Calcium 8.5 Total Bilirubin 0.7 AST 106 H ALT 50 Alkaline Phosphatase 116 Total Protein 8.9 H Albumin 4.6 HIV 1&2 Antibody Screen Negative HIV P24 Antigen Negative aaox3 ambulating no acute distress Assessment: 09/21/18 11:37 withdrawal sx Plan: continue detox increase fluids visitril prn
[2018-09-21] MEDS ORDERED: FLU VACCINE QUAD 60 MCG/0.5 ML (MDV 18-19) IM ONE (12:00)
[2018-09-21] MEDS ORDERED: PNEUMOCOCCAL 23 VACCINE 0.5 ML VIAL IM ONE (12:00)
[2018-09-21] MEDS: IBUPROFEN 400 MG TABLET (FP) PO PRN (20:41)
[2018-09-21] MEDS: THIAMINE HCL 100 MG TABLET (FP) PO SCH (22:05)
[2018-09-21] MEDS: MELATONIN 5 MG TABLETS PO PRN (22:06)
[2018-09-22] MEDS: chlordiazePOXIDE HCL 25 MG CAPSULE PO SCH ×2 (06:07→10:27)
[2018-09-22] MEDS: IBUPROFEN 400 MG TABLET (FP) PO PRN (08:31)
--- NOTE | 2018-09-22 09:58 | PN ---
S CIWA - CIWA Score Nausea/Vomitin Muscle Tremors: 2 Anxiety: 2 Agitation: 2 Paroxysmal Sweats: 2 Orientation: 0-Oriented Tacttile Disturbances: 1-Very Mild Itch/Numbness Auditory Disturbances: 1-Very Mild Visual Disturbances: 0-None Headache: 2-Mild CIWA-Ar Total Score: 14 S Progress Note (SOAP) Subjective: alert,irritable,anxious,interrupted sleep,tremor Objective: 09/22/18 09:56 Vital Signs Temperature 96.4 F L 09/22/18 09:06 Pulse Rate 76 09/22/18 09:06 Respiratory Rate 18 09/22/18 09:06 Blood Pressure 122/91 09/22/18 09:06 O2 Sat by Pulse Oximetry (%) 09/22/18 09:56 Laboratory Last Values WBC 6.3 K/mm3 (4.0-10.0) 09/21/18 06:00 RBC 3.83 M/mm3 (4.00-5.60) L 09/21/18 06:00 Hgb 12.9 GM/dL (11.7-16.9) 09/21/18 06:00 Hct 37.7 % (35.4-49) 09/21/18 06:00 MCV 98.4 fl (80-96) H 09/21/18 06:00 MCH 33.7 pg (25.7-33.7) 09/21/18 06:00 MCHC 34.2 g/dl (32.0-35.9) 09/21/18 06:00 RDW 13.5 % (11.9-15.9) 09/21/18 06:00 Plt Count 191 K/MM3 (134-434) 09/21/18 06:00 MPV 8.4 fl (7.5-11.1) D 09/21/18 06:00 Sodium 134 mmol/L (136-145) L 09/21/18 06:00 Potassium 3.7 mmol/L (3.5-5.1) 09/21/18 06:00 Chloride 98 mmol/L (98-107) 09/21/18 06:00 Carbon Dioxide 22 mmol/L (21-32) 09/21/18 06:00 Anion Gap 14 MMOL/L (8-16) 09/21/18 06:00 BUN 10 mg/dL (7-18) 09/21/18 06:00 Creatinine 0.8 mg/dL (0.55-1.3) 09/21/18 06:00 Creat Clearance w eGFR > 60 (>60) 09/21/18 06:00 Random Glucose 88 mg/dL (74-106) 09/21/18 06:00 Calcium 8.5 mg/dL (8.5-10.1) 09/21/18 06:00 Total Bilirubin 0.7 mg/dL (0.2-1) 09/21/18 06:00 AST 106 U/L (15-37) H 09/21/18 06:00 ALT 50 U/L (13-61) 09/21/18 06:00 Alkaline Phosphatase 116 U/L (45-117) 09/21/18 06:00 Total Protein 8.9 g/dl (6.4-8.2) H 09/21/18 06:00 Albumin 4.6 g/dl (3.4-5.0) 09/21/18 06:00 RPR Titer Nonreactive (NONREACTIVE) 09/21/18 06:00 HIV 1&2 Antibody Screen Negative 09/20/18 13:00 HIV P24 Antigen Negative 09/20/18 13:00 Assessment: 09/22/18 09:57 withdrawal symptom Plan: continue detox,rpr is non reactive, history of syphilis in the past could be wrong information
[2018-09-22] MEDS: PRENATAL VITAMINS W/ FOLIC ACID TABLET (FP) PO SCH (10:27)
[2018-09-22] MEDS: NICOTINE 21 MG/24 HOURS TOPICAL PATCH TD SCH (10:29)
[2018-09-22 12:46] LABS: URINE APPEARANCE CLEAR; URINE BILIRUBIN NEGATIVE (<2.0 mg/dL); URINE COLOR AMBER; URINE GLUCOSE (UA) NEGATIVE (NEGATIVE); URINE KETONE NEGATIVE (NEGATIVE); URINE LEUK ESTERASE NEGATIVE (NEGATIVE); URINE NITRITE NEGATIVE (NEGATIVE); URINE PROTEIN 1+ (NEGATIVE)
[2018-09-22 12:49] LABS: EPI CELLS RARE /HPF (FEW); URINE MUCUS FEW
[2018-09-22] MEDS: hydrOXYzine PAMOATE 25 MG CAPSULE (FP) PO PRN (15:46)
[2018-09-22] MEDS ORDERED: chlordiazePOXIDE HCL 10 MG CAPSULE PO PRN (17:00)
[2018-09-22] MEDS: chlordiazePOXIDE HCL 10 MG CAPSULE PO SCH ×2 (17:52→22:01)
[2018-09-22] MEDS: THIAMINE HCL 100 MG TABLET (FP) PO SCH (22:01)
[2018-09-22] MEDS: MELATONIN 5 MG TABLETS PO PRN (22:01)
[2018-09-23] MEDS: hydrOXYzine PAMOATE 25 MG CAPSULE (FP) PO PRN (01:25)
[2018-09-23] MEDS: chlordiazePOXIDE HCL 10 MG CAPSULE PO SCH (05:29)
[2018-09-23 09:44] VITALS: BP 125/86; PULSE 82; TEMP 97.7
--- NOTE | 2018-09-23 09:51 | DS ---
[facility] Detox Discharge Summary Admission Date: 09/20/18 Discharge Date: 09/23/18 - History Present History: Alcohol Dependence, Cannabis Dependence - Physical Exam Results Vital Signs: Vital Signs Temperature 97.7 F 09/23/18 09:44 Pulse Rate 82 09/23/18 09:44 Respiratory Rate 18 09/23/18 09:44 Blood Pressure 125/86 09/23/18 09:44 O2 Sat by Pulse Oximetry (%) - Treatment Hospital Course: Detox Protocol Followed, Detoxed Safely, Responded well, Discharged Condition Good, Rehab Referral Accepted - Medication Discharge Medications: Ambulatory Orders NK [No Known Home Medication] 11/14/16 - Diagnosis (1) Alcohol dependence with uncomplicated withdrawal Current Visit: Yes Status: Chronic (2) Cannabis dependence Current Visit: Yes Status: Chronic (3) Nicotine dependence Current Visit: Yes Status: Chronic Qualifiers: Nicotine product type: cigarettes Substance use status: uncomplicated Qualified Code(s): F17.210 - Nicotine dependence, cigarettes, uncomplicated (4) Syphilis contact, treated Current Visit: No Status: Chronic (5) Bipolar disorder Current Visit: No Status: Suspected - AMA Did Patient Leave Against Medical Advice: No (declined rehab referred outpatient )
[2018-09-23] MEDS ORDERED: chlordiazePOXIDE HCL 10 MG CAPSULE PO SCH (17:00)
== END 2018-09-23 09:54 | disposition home or self-care (01) | DRG 775 ==
LOC: YASAS 09:27 → Y6N 12:07
PROVIDERS: ADMIT Surgery; ATTEND Surgery
PROC: HZ2ZZZZ Detoxification Services for Substance Abuse Treatment (ICD-10-PCS; principal; 2018-09-20)
DX: F10.230 Alcohol dependence with withdrawal, uncomplicated (principal); F12.20 Cannabis dependence, uncomplicated; F17.210 Nicotine dependence, cigarettes, uncomplicated; F31.9 Bipolar disorder, unspecified; G40.509 Epileptic seizures related to external causes, not intractable, without status epilepticus; Z86.19 Personal history of other infectious and parasitic diseases; Z91.013 Allergy to seafood
CPT/HCPCS: 36415; 80053; 81003; 81015; 85027; 86593; 87389; 90688; 90732; G0008; G0009

== ENCOUNTER 2021-01-22 12:03 | Inpatient (IN) | payer OTHER ==
[2021-01-22 14:50] VITALS: BMI 18.1
[2021-01-22] MEDS ORDERED: ONDANSETRON *ODT* 4 MG TABLET SL PRN (15:11)
[2021-01-22] MEDS ORDERED: MENTHOL/PHENOL 1 EACH UD MM PRN (15:11)
[2021-01-22] MEDS ORDERED: ACETAMINOPHEN 325 MG TABLET (FP) PO PRN (15:11)
[2021-01-22] MEDS ORDERED: MAG HYDROX/AL HYDROX/SIMETH 30 ML UNIT-DOSE CUP PO PRN (15:11)
[2021-01-22] MEDS ORDERED: MAGNESIUM CITRATE 300 ML BOTTLE PO PRN (15:11)
[2021-01-22] MEDS ORDERED: BISMUTH SUBSALICYLATE 262 MG/15 ML BTL PO PRN (15:11)
[2021-01-22] MEDS ORDERED: chlordiazePOXIDE HCL 25 MG CAPSULE PO PRN (15:11)
[2021-01-22] MEDS ORDERED: MAGNESIUM HYDROX 2400MG/30ML ORAL SUSPENSION 30 ML CUP PO PRN (15:11)
[2021-01-22] MEDS ORDERED: LORazepam 1 MG TABLET PO PRN (15:55)
[2021-01-22] MEDS ORDERED: NICOTINE 14 MG/24 HOURS TOPICAL PATCH TD ONE (16:57)
[2021-01-22] MEDS ORDERED: chlordiazePOXIDE HCL 25 MG CAPSULE PO SCH (17:00)
[2021-01-22] MEDS: NICOTINE 14 MG/24 HOURS TOPICAL PATCH TD SCH (17:00)
[2021-01-22] MEDS: LORazepam 2 MG TABLET PO SCH ×2 (17:58→22:47)
[2021-01-22] MEDS: PRENATAL VITAMINS W/ FOLIC ACID TABLET (FP) PO SCH (17:59)
[2021-01-22] MEDS: hydrOXYzine PAMOATE 25 MG CAPSULE (FP) PO SCH ×2 (17:59→22:47)
[2021-01-22] MEDS: THIAMINE HCL 100 MG TABLET (FP) PO SCH (22:47)
[2021-01-22] MEDS: MELATONIN 5 MG TABLETS PO SCH (22:47)
[2021-01-23] MEDS: hydrOXYzine PAMOATE 25 MG CAPSULE (FP) PO SCH ×2 (05:50→10:50)
[2021-01-23] MEDS: LORazepam 2 MG TABLET PO SCH ×4 (05:51→22:50)
[2021-01-23] MEDS: NICOTINE 14 MG/24 HOURS TOPICAL PATCH TD SCH (10:49)
[2021-01-23] MEDS: PRENATAL VITAMINS W/ FOLIC ACID TABLET (FP) PO SCH (10:50)
[2021-01-23 13:28] LABS: HEMATOCRIT 36.4 % (35.4-49); HEMOGLOBIN 12.1 GM/dL (11.7-16.9); MCH 33.9 pg (25.7-33.7); MCHC 33.2 g/dl (32.0-35.9); MEAN CELL VOLUME 102.2 fl (80-96); MEAN PLT VOLUME 8.2 fl (7.5-11.1); PLATELET COUNT 268 10^3/uL (134-434); RBC 3.56 M/mm3 (4.00-5.60); WHITE BLOOD COUNT 4.8 K/mm3 (4.0-10.0)
[2021-01-23 13:32] LABS: CALCIUM 8.7 mg/dL (8.5-10.1)
[2021-01-23 13:36] LABS: CREATININE 0.7 mg/dL (0.55-1.3)
[2021-01-23 13:38] LABS: BILIRUBIN,TOTAL 0.8 mg/dL (0.2-1); TOT PROT 7.9 g/dl (6.4-8.2)
[2021-01-23] MEDS: hydrOXYzine PAMOATE 25 MG CAPSULE (FP) PO PRN ×2 (17:32→22:50)
[2021-01-23] MEDS: METHOCARBAMOL 500 MG TABLET PO PRN (17:32)
[2021-01-23] MEDS: MELATONIN 5 MG TABLETS PO SCH (22:50)
[2021-01-23] MEDS: THIAMINE HCL 100 MG TABLET (FP) PO SCH (22:50)
[2021-01-23] MEDS: levETIRAcetam 500 MG TABLET (FP) PO SCH (22:50)
[2021-01-24] MEDS ORDERED: chlordiazePOXIDE HCL 25 MG CAPSULE PO SCH (05:00)
[2021-01-24] MEDS: LORazepam 1 MG TABLET PO SCH ×4 (06:25→22:15)
[2021-01-24] MEDS: hydrOXYzine PAMOATE 25 MG CAPSULE (FP) PO PRN ×4 (06:26→22:16)
[2021-01-24] MEDS: amLODIPine BESYLATE 5 MG TABLET (FP) PO SCH (10:42)
[2021-01-24] MEDS: levETIRAcetam 500 MG TABLET (FP) PO SCH ×2 (10:42→22:15)
[2021-01-24] MEDS: IBUPROFEN 400 MG TABLET (FP) PO PRN (10:42)
[2021-01-24] MEDS: METHOCARBAMOL 500 MG TABLET PO PRN ×2 (10:42→22:16)
[2021-01-24] MEDS: NICOTINE 14 MG/24 HOURS TOPICAL PATCH TD SCH (10:43)
[2021-01-24] MEDS: PRENATAL VITAMINS W/ FOLIC ACID TABLET (FP) PO SCH (10:44)
[2021-01-24 11:00] LABS: HIV INTERPRETATION NEGATIVE (NEGATIVE)
[2021-01-24] MEDS: NICOTINE POLACRILEX 2 MG GUM BUC PRN ×2 (13:03→18:17)
[2021-01-24] MEDS: THIAMINE HCL 100 MG TABLET (FP) PO SCH (22:15)
[2021-01-24] MEDS: MELATONIN 5 MG TABLETS PO SCH (22:15)
[2021-01-25] MEDS ORDERED: chlordiazePOXIDE HCL 10 MG CAPSULE PO PRN
[2021-01-25] MEDS ORDERED: LORazepam 0.5 MG TABLET PO PRN
[2021-01-25] MEDS ORDERED: chlordiazePOXIDE HCL 10 MG CAPSULE PO SCH (05:00)
[2021-01-25] MEDS: LORazepam 0.5 MG TABLET PO SCH ×4 (06:15→23:19)
[2021-01-25] MEDS: METHOCARBAMOL 500 MG TABLET PO PRN ×3 (06:16→23:21)
[2021-01-25] MEDS: ACETAMINOPHEN 325 MG TABLET (FP) PO PRN ×2 (06:17→13:44)
[2021-01-25] MEDS: PRENATAL VITAMINS W/ FOLIC ACID TABLET (FP) PO SCH (10:16)
[2021-01-25] MEDS: amLODIPine BESYLATE 5 MG TABLET (FP) PO SCH (10:16)
[2021-01-25] MEDS: levETIRAcetam 500 MG TABLET (FP) PO SCH ×2 (10:16→23:19)
[2021-01-25] MEDS: NICOTINE 14 MG/24 HOURS TOPICAL PATCH TD SCH (10:18)
[2021-01-25] MEDS: hydrOXYzine PAMOATE 25 MG CAPSULE (FP) PO PRN ×2 (17:48→23:20)
[2021-01-25] MEDS: IBUPROFEN 400 MG TABLET (FP) PO PRN (19:50)
[2021-01-25] MEDS: MELATONIN 5 MG TABLETS PO SCH (23:19)
[2021-01-25] MEDS: THIAMINE HCL 100 MG TABLET (FP) PO SCH (23:19)
[2021-01-26] MEDS ORDERED: LORazepam 0.5 MG TABLET PO ONE (05:00)
[2021-01-26] MEDS ORDERED: chlordiazePOXIDE HCL 10 MG CAPSULE PO SCH (05:00)
[2021-01-26] MEDS: IBUPROFEN 400 MG TABLET (FP) PO PRN (07:20)
[2021-01-26] MEDS: METHOCARBAMOL 500 MG TABLET PO PRN ×3 (07:20→19:44)
[2021-01-26] MEDS: PRENATAL VITAMINS W/ FOLIC ACID TABLET (FP) PO SCH (10:19)
[2021-01-26] MEDS: levETIRAcetam 500 MG TABLET (FP) PO SCH ×2 (10:19→22:21)
[2021-01-26] MEDS: NICOTINE 14 MG/24 HOURS TOPICAL PATCH TD SCH (10:19)
[2021-01-26] MEDS: amLODIPine BESYLATE 5 MG TABLET (FP) PO SCH (10:20)
[2021-01-26] MEDS: ACETAMINOPHEN 325 MG TABLET (FP) PO PRN (10:20)
[2021-01-26] MEDS: THIAMINE HCL 100 MG TABLET (FP) PO SCH (22:21)
[2021-01-26] MEDS: MELATONIN 5 MG TABLETS PO SCH (22:21)
[2021-01-26] MEDS: hydrOXYzine PAMOATE 25 MG CAPSULE (FP) PO PRN (22:22)
[2021-01-27] MEDS ORDERED: chlordiazePOXIDE HCL 10 MG CAPSULE PO ONE (05:00)
[2021-01-27] MEDS: hydrOXYzine PAMOATE 25 MG CAPSULE (FP) PO PRN (05:36)
[2021-01-27] MEDS: METHOCARBAMOL 500 MG TABLET PO PRN (05:36)
[2021-01-27 08:51] VITALS: BP 126/77; PULSE 68; TEMP 97.3
[2021-01-27] MEDS: levETIRAcetam 500 MG TABLET (FP) PO SCH (09:03)
[2021-01-27] MEDS: PRENATAL VITAMINS W/ FOLIC ACID TABLET (FP) PO SCH (09:03)
[2021-01-27] MEDS: amLODIPine BESYLATE 5 MG TABLET (FP) PO SCH (09:03)
[2021-01-27] MEDS: NICOTINE 14 MG/24 HOURS TOPICAL PATCH TD SCH (09:03)
== END 2021-01-27 09:20 | disposition other institution (70) | DRG 774 ==
LOC: YASAS 12:03 → Y3N 15:07
PROVIDERS: ADMIT Allergy & Immunology; ATTEND Allergy & Immunology
PROC: HZ2ZZZZ Detoxification Services for Substance Abuse Treatment (ICD-10-PCS; principal; 2021-01-22)
DX: F10.230 Alcohol dependence with withdrawal, uncomplicated (principal); F14.10 Cocaine abuse, uncomplicated; F13.20 Sedative, hypnotic or anxiolytic dependence, uncomplicated; F12.20 Cannabis dependence, uncomplicated; F17.210 Nicotine dependence, cigarettes, uncomplicated; F31.9 Bipolar disorder, unspecified; G40.509 Epileptic seizures related to external causes, not intractable, without status epilepticus; R74.01 Elevation of levels of liver transaminase levels; Z86.19 Personal history of other infectious and parasitic diseases
CPT/HCPCS: 36415; 80053; 84450; 85027; 86780; 87389; 93005; 93010; C9803; U0003; U0005

== ENCOUNTER 2021-10-17 15:20 | Inpatient (IN) | payer OTHER ==
[2021-10-17 17:45] VITALS: BMI 17.7
[2021-10-17] MEDS ORDERED: MAG HYDROX/AL HYDROX/SIMETH 30 ML UNIT-DOSE CUP PO PRN (21:23)
[2021-10-17] MEDS ORDERED: BENZOCAINE/MENTHOL (CHLORASEPTIC ) LOZENGE MM PRN (21:23)
[2021-10-17] MEDS ORDERED: LOPERAMIDE HCL 2 MG CAPSULE PO PRN (21:23)
[2021-10-17] MEDS ORDERED: BISMUTH SUBSALICYLATE 524 MG/30 ML PO PRN (21:23)
[2021-10-17] MEDS ORDERED: DICYCLOMINE HCL 10 MG CAPSULE PO PRN (21:23)
[2021-10-17] MEDS ORDERED: NICOTINE POLACRILEX 2 MG GUM BUC PRN (21:23)
[2021-10-17] MEDS ORDERED: MAGNESIUM HYDROX 2400MG/30ML ORAL SUSPENSION 30 ML CUP PO PRN (21:23)
[2021-10-17] MEDS ORDERED: ACETAMINOPHEN 325 MG TABLET (FP) PO PRN (21:23)
[2021-10-17] MEDS ORDERED: ONDANSETRON *ODT* 4 MG TABLET SL PRN (21:23)
[2021-10-17] MEDS ORDERED: MAGNESIUM CITRATE 300 ML BOTTLE PO PRN (21:23)
[2021-10-17] MEDS: NICOTINE 10 MG CARTRIDGE (INHALER) IH PRN (22:53)
[2021-10-17] MEDS: MELATONIN 5 MG TABLETS PO SCH (22:55)
[2021-10-17] MEDS: METHOCARBAMOL 500 MG TABLET PO PRN (22:55)
[2021-10-17] MEDS: THIAMINE HCL 100 MG TABLET (FP) PO SCH (22:55)
[2021-10-17] MEDS: hydrOXYzine PAMOATE 25 MG CAPSULE (FP) PO PRN (22:56)
[2021-10-18] MEDS: IBUPROFEN 400 MG TABLET (FP) PO PRN ×2 (01:39→18:15)
[2021-10-18] MEDS: ACETAMINOPHEN 325 MG TABLET (FP) PO PRN ×2 (04:39→10:24)
[2021-10-18] MEDS ORDERED: chlordiazePOXIDE HCL 25 MG CAPSULE PO PRN (09:49)
[2021-10-18] MEDS: PRENATAL VITAMINS W/ FOLIC ACID TABLET (FP) PO SCH (10:22)
[2021-10-18] MEDS: NICOTINE 10 MG CARTRIDGE (INHALER) IH PRN ×2 (10:25→19:05)
[2021-10-18] MEDS: amLODIPine BESYLATE 5 MG TABLET (FP) PO SCH (10:26)
[2021-10-18] MEDS: chlordiazePOXIDE HCL 25 MG CAPSULE PO SCH ×3 (11:56→22:47)
[2021-10-18 13:25] LABS: ALBUMIN 3.4 g/dl (3.4-5.0); BLOOD UREA NITROGEN 7.2 mg/dL (7-18); CALCIUM 8.3 mg/dL (8.5-10.1)
[2021-10-18 13:27] LABS: CREATININE 0.7 mg/dL (0.55-1.3)
[2021-10-18 13:30] LABS: HEMATOCRIT 34.5 % (35.4-49); HEMOGLOBIN 11.4 GM/dL (11.7-16.9); MCH 32.7 pg (25.7-33.7); MCHC 33.1 g/dl (32.0-35.9); MEAN CELL VOLUME 98.8 fl (80-96); MEAN PLT VOLUME 6.8 fl (7.5-11.1); PLATELET COUNT 439 10^3/uL (134-434); RDW 13.7 % (11.9-15.9); TOT PROT 6.8 g/dl (6.4-8.2); WHITE BLOOD COUNT 3.5 K/mm3 (4.0-10.0)
[2021-10-18] MEDS: MELATONIN 5 MG TABLETS PO SCH (22:47)
[2021-10-18] MEDS: hydrOXYzine PAMOATE 25 MG CAPSULE (FP) PO PRN (22:47)
[2021-10-18] MEDS: THIAMINE HCL 100 MG TABLET (FP) PO SCH (22:47)
[2021-10-19] MEDS: METHOCARBAMOL 500 MG TABLET PO PRN ×2 (00:45→08:06)
[2021-10-19] MEDS: chlordiazePOXIDE HCL 10 MG CAPSULE PO SCH ×2 (06:40→10:22)
[2021-10-19] MEDS: ACETAMINOPHEN 325 MG TABLET (FP) PO PRN ×2 (06:43→12:33)
[2021-10-19] MEDS: IBUPROFEN 400 MG TABLET (FP) PO PRN ×2 (08:04→22:39)
[2021-10-19] MEDS: NICOTINE 10 MG CARTRIDGE (INHALER) IH PRN ×2 (08:25→22:37)
[2021-10-19] MEDS: amLODIPine BESYLATE 5 MG TABLET (FP) PO SCH (10:22)
[2021-10-19] MEDS: PRENATAL VITAMINS W/ FOLIC ACID TABLET (FP) PO SCH (10:22)
[2021-10-19] MEDS ORDERED: diazePAM 5 MG TABLET PO PRN (12:34)
[2021-10-19] MEDS ORDERED: MELATONIN 5 MG TABLETS PO SCH (12:38)
[2021-10-19] MEDS: levETIRAcetam 500 MG TABLET (FP) PO SCH ×2 (14:13→22:35)
[2021-10-19 16:07] LABS: SARS-CoV-2 NAA Not Detected (Not Detected)
[2021-10-19 17:49] VITALS: TEMP 97.8
[2021-10-19] MEDS ORDERED: diazePAM 5 MG TABLET PO SCH (22:00)
[2021-10-19 22:34] VITALS: BP 109/81; PULSE 70
[2021-10-19] MEDS: THIAMINE HCL 100 MG TABLET (FP) PO SCH (22:35)
[2021-10-19] MEDS: hydrOXYzine PAMOATE 25 MG CAPSULE (FP) PO PRN (23:48)
[2021-10-20] MEDS ORDERED: hydrOXYzine PAMOATE 25 MG CAPSULE (FP) PO ONE (01:25)
[2021-10-20] MEDS: METHOCARBAMOL 500 MG TABLET PO PRN ×2 (01:36→10:10)
[2021-10-20] MEDS ORDERED: chlordiazePOXIDE HCL 10 MG CAPSULE PO SCH (05:00)
[2021-10-20] MEDS ORDERED: diazePAM 5 MG TABLET PO SCH (06:00)
[2021-10-20] MEDS: amLODIPine BESYLATE 5 MG TABLET (FP) PO SCH (10:10)
[2021-10-20] MEDS: levETIRAcetam 500 MG TABLET (FP) PO SCH (10:10)
[2021-10-20] MEDS: PRENATAL VITAMINS W/ FOLIC ACID TABLET (FP) PO SCH (10:10)
[2021-10-20] MEDS: hydrOXYzine PAMOATE 25 MG CAPSULE (FP) PO PRN (10:11)
[2021-10-20] MEDS: NICOTINE 10 MG CARTRIDGE (INHALER) IH PRN (10:12)
[2021-10-21] MEDS ORDERED: chlordiazePOXIDE HCL 10 MG CAPSULE PO PRN
[2021-10-21] MEDS ORDERED: chlordiazePOXIDE HCL 10 MG CAPSULE PO ONE (05:00)
[2021-10-21] MEDS ORDERED: diazePAM 5 MG TABLET PO ONE (05:00)
== END 2021-10-20 10:55 | disposition home or self-care (01) | DRG 775 ==
LOC: YASAS 15:20 → Y6N 18:46 → UNDOADMIN 18:46 → UNDODISIN 10-20 10:55
PROVIDERS: ADMIT Allergy & Immunology; ATTEND Allergy & Immunology
PROC: HZ2ZZZZ Detoxification Services for Substance Abuse Treatment (ICD-10-PCS; principal; 2021-10-17)
DX: F10.230 Alcohol dependence with withdrawal, uncomplicated (principal); F12.20 Cannabis dependence, uncomplicated; F17.210 Nicotine dependence, cigarettes, uncomplicated; F31.9 Bipolar disorder, unspecified; G40.909 Epilepsy, unspecified, not intractable, without status epilepticus; I10 Essential (primary) hypertension
CPT/HCPCS: 36415; 80053; 80177; 85027; 86780; 87811; C9803-CS; U0003; U0005

== ENCOUNTER 2022-03-20 12:38 | Inpatient (IN) | payer OTHER ==
[2022-03-20 13:25] VITALS: BMI 17.4
[2022-03-20] MEDS ORDERED: DICYCLOMINE HCL 10 MG CAPSULE PO PRN (17:43)
[2022-03-20] MEDS ORDERED: MAGNESIUM CITRATE 300 ML BOTTLE PO PRN (17:43)
[2022-03-20] MEDS ORDERED: LOPERAMIDE HCL 2 MG CAPSULE PO PRN (17:43)
[2022-03-20] MEDS ORDERED: MAGNESIUM HYDROX 2400MG/30ML ORAL SUSPENSION 30 ML CUP PO PRN (17:43)
[2022-03-20] MEDS ORDERED: IBUPROFEN 600 MG TABLET (FP) PO PRN (17:43)
[2022-03-20] MEDS ORDERED: ACETAMINOPHEN 325 MG TABLET (FP) PO PRN ×2 (17:43)
[2022-03-20] MEDS ORDERED: IBUPROFEN 400 MG TABLET (FP) PO PRN (17:43)
[2022-03-20] MEDS ORDERED: BENZOCAINE/MENTHOL (CHLORASEPTIC ) LOZENGE MM PRN (17:43)
[2022-03-20] MEDS ORDERED: MAG HYDROX/AL HYDROX/SIMETH 30 ML UNIT-DOSE CUP PO PRN (17:43)
[2022-03-20] MEDS ORDERED: P-EPHED 60MG/TRIPROLIDI 2.5MG TABLET PO PRN (17:43)
[2022-03-20] MEDS ORDERED: METHOCARBAMOL 500 MG TABLET PO PRN (17:43)
[2022-03-20] MEDS ORDERED: guaiFENesin 200 MG/10 ML 10 ML UNIT-DOSE CUPS PO PRN (17:43)
[2022-03-20] MEDS ORDERED: NICOTINE POLACRILEX 2 MG GUM BUC PRN (17:43)
[2022-03-20] MEDS ORDERED: BISMUTH SUBSALICYLATE 524 MG/30 ML PO PRN (17:43)
[2022-03-20] MEDS ORDERED: ONDANSETRON *ODT* 4 MG TABLET SL PRN (17:43)
[2022-03-20] MEDS: diazePAM 5 MG TABLET PO PRN (22:23)
[2022-03-20] MEDS: hydrOXYzine PAMOATE 25 MG CAPSULE (FP) PO PRN (22:23)
[2022-03-20] MEDS: MELATONIN 5 MG TABLETS PO SCH (22:24)
[2022-03-20] MEDS: levETIRAcetam 500 MG TABLET (FP) PO SCH (22:24)
[2022-03-20] MEDS: THIAMINE HCL 100 MG TABLET (FP) PO SCH (22:24)
[2022-03-21] MEDS: PRENATAL VITAMINS W/ FOLIC ACID TABLET (FP) PO SCH (10:42)
[2022-03-21] MEDS: hydrOXYzine PAMOATE 25 MG CAPSULE (FP) PO PRN (10:42)
[2022-03-21] MEDS: levETIRAcetam 500 MG TABLET (FP) PO SCH ×2 (10:42→22:22)
[2022-03-21] MEDS: NICOTINE 10 MG CARTRIDGE (INHALER) IH PRN ×2 (10:43→18:19)
[2022-03-21 11:35] LABS: HEMATOCRIT 35.9 % (35.4-49); HEMOGLOBIN 12.1 GM/dL (11.7-16.9); MCH 33.4 pg (25.7-33.7); MCHC 33.7 g/dl (32.0-35.9); MEAN CELL VOLUME 99.3 fl (80-96); MEAN PLT VOLUME 7.3 fl (7.5-11.1); PLATELET COUNT 205 10^3/uL (134-434); RBC 3.61 M/mm3 (4.00-5.60); RDW 13.8 % (11.9-15.9); WHITE BLOOD COUNT 4.1 K/mm3 (4.0-10.0)
[2022-03-21 11:38] LABS: CALCIUM 8.8 mg/dL (8.5-10.1)
[2022-03-21 11:39] LABS: ALBUMIN 3.8 g/dl (3.4-5.0); BLOOD UREA NITROGEN 4.7 mg/dL (7-18)
[2022-03-21 11:42] LABS: CREATININE 0.6 mg/dL (0.55-1.3)
[2022-03-21 11:44] LABS: BILIRUBIN,TOTAL 1.1 mg/dL (0.2-1)
[2022-03-21] MEDS: diazePAM 5 MG TABLET PO PRN ×2 (13:10→18:20)
[2022-03-21 21:57] VITALS: RESP 18; TEMP 97.3
[2022-03-21] MEDS: MELATONIN 5 MG TABLETS PO SCH (22:21)
[2022-03-21] MEDS: THIAMINE HCL 100 MG TABLET (FP) PO SCH (22:22)
[2022-03-22] MEDS: diazePAM 5 MG TABLET PO PRN (00:32)
[2022-03-22] MEDS ORDERED: MELATONIN 5 MG TABLETS PO ONE (00:48)
[2022-03-22 09:55] VITALS: BP 121/78; PULSE 98
[2022-03-22] MEDS: PRENATAL VITAMINS W/ FOLIC ACID TABLET (FP) PO SCH (10:09)
[2022-03-22] MEDS: levETIRAcetam 500 MG TABLET (FP) PO SCH (10:09)
== END 2022-03-22 11:30 | disposition home or self-care (01) | DRG 775 ==
LOC: YASAS 12:38 → Y6N 19:00
PROVIDERS: ADMIT Allergy & Immunology; ATTEND Surgery
PROC: HZ2ZZZZ Detoxification Services for Substance Abuse Treatment (ICD-10-PCS; principal; 2022-03-20)
DX: F10.230 Alcohol dependence with withdrawal, uncomplicated (principal); F12.20 Cannabis dependence, uncomplicated; F17.210 Nicotine dependence, cigarettes, uncomplicated; I10 Essential (primary) hypertension; G40.909 Epilepsy, unspecified, not intractable, without status epilepticus
CPT/HCPCS: 36415; 80053; 85027; 86780; 87811; C9803-CS; U0003; U0005

== ENCOUNTER 2024-06-26 12:14 | Inpatient (IN) | payer OTHER ==
[2024-06-26 13:14] VITALS: BMI 21.1
[2024-06-26] MEDS ORDERED: BENZONATATE 200 MG CAPSULE PO PRN (13:20)
[2024-06-26] MEDS ORDERED: BISMUTH SUBSALICYLATE 524 MG/30 ML PO PRN (13:20)
[2024-06-26] MEDS ORDERED: NICOTINE POLACRILEX 2 MG LOZENGE BC PRN (13:20)
[2024-06-26] MEDS ORDERED: IBUPROFEN 400 MG TABLET (FP) PO PRN (13:20)
[2024-06-26] MEDS ORDERED: NALOXONE (NARCAN) HCL 4 MG/0.1 ML SPRAY NS PRN (13:20)
[2024-06-26] MEDS ORDERED: MAG HYDROX/AL HYDROX/SIMETH 30 ML UNIT-DOSE CUP PO PRN (13:20)
[2024-06-26] MEDS ORDERED: MAGNESIUM HYDROX 2400MG/30ML ORAL SUSPENSION 30 ML CUP PO PRN (13:20)
[2024-06-26] MEDS ORDERED: LOPERAMIDE HCL 2 MG CAPSULE PO PRN (13:20)
[2024-06-26] MEDS ORDERED: guaiFENesin 600 MG TABLET.ER (FP) PO PRN (13:20)
[2024-06-26] MEDS ORDERED: ONDANSETRON *ODT* 4 MG TABLET SL PRN (13:20)
[2024-06-26] MEDS ORDERED: POLYETHYLENE GLYCOL (HEALTHYLAX) 3350 17 GM PACKET PO PRN (13:20)
[2024-06-26] MEDS ORDERED: BENZOCAINE/MENTHOL (CHLORASEPTIC ) LOZENGE MM PRN (13:20)
[2024-06-26] MEDS ORDERED: DICYCLOMINE HCL 10 MG CAPSULE PO PRN (13:20)
[2024-06-26] MEDS ORDERED: IBUPROFEN 600 MG TABLET (FP) PO ONE (15:38)
[2024-06-26] MEDS ORDERED: amLODIPine BESYLATE 5 MG TABLET (FP) ONE (15:38)
[2024-06-26] MEDS: amLODIPine BESYLATE 5 MG TABLET (FP) PO SCH (15:43)
[2024-06-26] MEDS: IBUPROFEN 600 MG TABLET (FP) PO PRN (15:43)
[2024-06-26] MEDS ORDERED: levETIRAcetam 500 MG TABLET (FP) PO SCH (18:13)
[2024-06-26] MEDS ORDERED: levETIRAcetam 250 MG TABLET PO SCH (18:19)
[2024-06-26] MEDS: levETIRAcetam 250 MG TABLET PO SCH (18:36)
[2024-06-26] MEDS: levETIRAcetam 500 MG TABLET (FP) PO SCH (18:44)
[2024-06-26] MEDS: ACETAMINOPHEN 325 MG TABLET (FP) PO PRN (22:18)
[2024-06-26] MEDS: THIAMINE 100 MG TABLET PO SCH (22:19)
[2024-06-26] MEDS: MELATONIN 5 MG TABLETS PO SCH (22:19)
[2024-06-27] MEDS: METHOCARBAMOL 500 MG TABLET PO PRN (09:12)
[2024-06-27] MEDS: NICOTINE 14 MG/24 HOURS TOPICAL PATCH TD SCH (09:13)
[2024-06-27] MEDS: PRENATAL VITAMINS W/ FOLIC ACID TABLET (FP) PO SCH (09:13)
[2024-06-27] MEDS: chlordiazePOXIDE HCL 25 MG CAPSULE PO SCH (10:24)
[2024-06-27 13:39] LABS: HEMATOCRIT 35.8 % (35.4-49); MCHC 33.5 g/dl (32.0-35.9); MEAN CELL VOLUME 98.6 fl (80-96); MEAN PLT VOLUME 6.5 fl (7.5-11.1); PLATELET COUNT 340 10^3/uL (134-434); RBC 3.63 M/mm3 (4.00-5.60); RDW 15.1 % (11.9-15.9); WHITE BLOOD COUNT 4.9 K/mm3 (4.0-10.0)
[2024-06-27 13:46] LABS: POTASSIUM 3.5 mmol/L (3.5-5.1)
[2024-06-27 13:54] LABS: ALBUMIN 4.2 g/dl (3.4-5.0); BLOOD UREA NITROGEN 4.7 mg/dL (7-18)
[2024-06-27 13:55] LABS: CREATININE 0.9 mg/dL (0.55-1.3)
[2024-06-27 13:57] LABS: BILIRUBIN,TOTAL 1.2 mg/dL (0.2-1); CALCIUM 9.2 mg/dL (8.5-10.1); TOT PROT 7.8 g/dl (6.4-8.2)
[2024-06-27] MEDS: SUVOREXANT 10 MG TABLET PO PRN (22:21)
[2024-06-27] MEDS: hydrOXYzine PAMOATE 25 MG CAPSULE (FP) PO PRN (22:21)
[2024-06-28] MEDS: CYPROHEPTADINE HCL 4 MG TABLET PO SCH (06:24)
[2024-06-28] MEDS: NICOTINE 21 MG/24 HOURS TOPICAL PATCH TD SCH (09:34)
[2024-06-28] MEDS: NICOTINE POLACRILEX 2 MG GUM BUC PRN (19:44)
[2024-06-29] MEDS ORDERED: chlordiazePOXIDE HCL 25 MG CAPSULE PO SCH (05:00)
[2024-06-29] MEDS: chlordiazePOXIDE HCL 25 MG CAPSULE PO PRN (09:52)
[2024-06-29] MEDS: SUVOREXANT 15 MG TABLET PO PRN (22:55)
[2024-06-30] MEDS ORDERED: chlordiazePOXIDE HCL 10 MG CAPSULE PO SCH (05:00)
[2024-06-30] MEDS: chlordiazePOXIDE HCL 10 MG CAPSULE PO PRN (06:53)
[2024-07-01] MEDS: chlordiazePOXIDE HCL 10 MG CAPSULE PO SCH (05:40)
[2024-07-01] MEDS: hydrOXYzine PAMOATE 50 MG CAPSULE (FP) PO ONE (14:13)
[2024-07-01] MEDS ORDERED: hydrOXYzine PAMOATE 25 MG CAPSULE (FP) PO PRN (18:00)
[2024-07-01] MEDS: MIRTAZAPINE 15 MG TABLET (FP) PO SCH (22:36)
[2024-07-01] MEDS: diphenhydrAMINE HCL 25 MG CAPSULE (FP) PO PRN (22:37)
[2024-07-02] MEDS: chlordiazePOXIDE HCL 10 MG CAPSULE PO ONE (05:44)
[2024-07-02] MEDS: NALOXONE (NYS OPIOID OVERDOSE PROGRAM) 4 MG/0.1 ML SPRAY NS SCH (08:50)
[2024-07-02 09:11] VITALS: BP 104/74; PULSE 73; RESP 18; TEMP 97.7
== END 2024-07-02 10:41 | disposition home or self-care (01) | DRG 775 ==
LOC: YASAS 12:14 → Y6N 15:46
PROVIDERS: ADMIT Allergy & Immunology; ATTEND Surgery
PROC: HZ2ZZZZ Detoxification Services for Substance Abuse Treatment (ICD-10-PCS; principal; 2024-06-26)
DX: F10.230 Alcohol dependence with withdrawal, uncomplicated (principal); F12.20 Cannabis dependence, uncomplicated; F17.210 Nicotine dependence, cigarettes, uncomplicated; F41.9 Anxiety disorder, unspecified; G40.909 Epilepsy, unspecified, not intractable, without status epilepticus; G47.00 Insomnia, unspecified
CPT/HCPCS: 36415; 80053; 80307; 83036; 85027; 86780; 93005; 93010